=== PATIENT | male | born 1995 | race Two or more races ===

== ENCOUNTER 2018-08-28 12:42 | Emergency (ER) | payer OTHER ==
[~2018-08-28] VITALS: Ht 175.3 cm; Wt 77.1 kg
[2018-08-28] MEDS ORDERED: HYDROcodone-ACET 10/325MG TAB PO ONE (16:45)
[2018-08-28 17:15] VITALS: BP 138/74
== END 2018-08-28 17:39 | disposition home or self-care (01) ==
LOC: ER 12:53
DX: S82.142A Displaced bicondylar fracture of left tibia, initial encounter for closed fracture (principal); F12.10 Cannabis abuse, uncomplicated; W01.0XXA Fall on same level from slipping, tripping and stumbling without subsequent striking against object, initial encounter; Y93.89 Activity, other specified; Y99.8 Other external cause status; Y92.89 Other specified places as the place of occurrence of the external cause
CPT/HCPCS: 29505; 73700